=== PATIENT | female | born 1985 | race Hispanic/Latino ===

== ENCOUNTER 2021-08-26 09:03 | Outpatient (CLI) | payer OTHER ==
--- NOTE | 2021-08-26 15:53 | Vascular Lab Report ---
ULTRASOUND RENAL ARTERY DUPLEX IMAGING INDICATION / CLINICAL INFORMATION: R10.30 LOWER ABDOMINAL PAIN. COMPARISON: None available. FINDINGS: RIGHT KIDNEY: Size = 11.5 cm. - Echogenicity: Normal. - Cortical thickness: Normal. - Hydronephrosis: None. - Cyst / Mass: None. - Stones: None seen.. - Renal resistive indices (RI): 0.7, 0.6, 0.7 (Normal < 0.70) - Renal/aortic ratio (RAR): 1.4 (Normal < 3.5) LEFT KIDNEY: Size = 12.2 cm. - Echogenicity: Normal. - Cortical thickness: Normal. - Hydronephrosis: None. - Cyst / Mass: None. - Stones: None seen.. - Renal resistive indices (RI): 0.6, 0.7, 0.7 (Normal < 0.70) - Renal/aortic ratio (RAR): 1.2 (Normal < 3.5) URINARY BLADDER: No significant abnormality. FREE FLUID: None. ADDITIONAL FINDINGS: The abdominal aorta is normal in caliber measuring up to 2.4 cm in AP dimension. Abdominal aortic velocities range from 122 cm/s - 136 cm/s. IVC is patent without significant abnormality. Elevated velocity within the proximal superior mesenteric artery measuring 184 cm/s. Elevated velocity within the proximal right renal artery measuring 186 cm/s. The renal veins are patent with phasic flow bilaterally. IMPRESSION 1. Elevated velocity within the proximal right renal artery suggesting <60% stenosis. 2. Elevated velocity within the proximal superior mesenteric artery. Scribed by: Domenica Bishop RDMS, RVT, JUAN CKS Scribed: 08/26/2021 1:33 PM I have reviewed the images, agree with this report, and edited this report as needed. Signer Name: Rosalio Grijalva MD Signed: 08/26/2021 3:48 PM Workstation Name: [employer]
== END 2021-08-26 09:04 | disposition home or self-care (01) ==
LOC: VAS 09:03
DX: S35.40 Unspecified injury of renal blood vessel (principal); R10.30 Lower abdominal pain, unspecified; X58.XXXD Exposure to other specified factors, subsequent encounter
CPT/HCPCS: 93975